=== PATIENT | male | born 1960 | race Caucasian/White ===

== ENCOUNTER 2019-03-24 09:23 | Emergency (ER) | payer OTHER ==
[2019-03-24] MEDS ORDERED: IBUPROFEN 600 MG TABLET ONE (09:31)
== END 2019-03-24 10:23 | disposition home or self-care (01) ==
LOC: EDH 09:23
DX: S53.492A Other sprain of left elbow, initial encounter (principal); Z72.0 Tobacco use; X50.1XXA Overexertion from prolonged static or awkward postures, initial encounter; Y93.89 Activity, other specified; Y92.89 Other specified places as the place of occurrence of the external cause; Y99.8 Other external cause status
CPT/HCPCS: 73080